=== PATIENT | male | born 1935 | race Caucasian/White ===

== ENCOUNTER → 2016-09-20 | Outpatient (CLI) | payer MEDICARE, MEDICAID ==
[~2016-09-20] MED LIST: AMLODIPINE10 MG PO; APAP W/ CODEINE1 TAB PO; ASPIR 8181 MG PO; BENADRYL25 M1 PO; CARVEDILOL 1212.5 MG PO; CHEWABLE ASPIRI81 M1 PO; COMBIVENT INH14.7 GM IN; CYCLOBENZAPRINE5 M1 PO; DOCUSATE SODIU100 MG PO; DRISDOL50000 IU PO; FAMOTIDINE 20MG20 MG PO; FERROUS SULFAT325 M1 PO; GLIPIZIDE ER5 MG PO; GLIPIZIDE5 MG PO; IMDUR 30MG. TAB30 MG PO; LEVAQUIN500 MG PO; LIPITOR10 MG PO; LISINOPRIL/HCTZ1 TA3 PO; LISINOPRIL10 MG PO; LOPERAMIDE2 MG PO; LORAZEPAM0.5 MG PO; LORTAB 500 MG-71 TAB PO; MELOXICAM15 MG PO; METOPROLOL25 MG PO; METOPROLOL50 MG PO; MILK OF MA400 MG/52 PO; NEURONTIN 300M300 MG PO; PLAVIX75 MG PO; PROTONIX 40MG T40 MG PO; Pepcid20 MG PO; REMERON15 MG PO; RISPERDAL 0.50.5 MG PO; RISPERDAL0.5 MG PO; RISPERDAL1 MG PO; RISPERIDONE1 M2 PO; SEROQUEL200 MG PO; TYLENOL W/CODEI1 TA2 PO; VANCOMYCIN 101000 MG IV; ZOFRAN4 MG PO
--- NOTE | 2016-09-20 09:05 | CARDIOVASCULAR REPORT ---
"Cerebrovascular Exam Indications: 433.10 Occlusion/stenosis of carotid artery without cerebral infarction. IMPRESSIONS 1. The bilateral vertebral arteries are patent with normal antegrade flow. 2. Study suggests 50-69% stenosis involving the right internal carotid artery and the left internal carotid artery. No change from the study of 16-Mar-2016. History: Coronary artery disease. Risk factors: Hypertension. Carotid duplex study. Complete study and Doppler flow study including spectral analysis, color and gee scale imaging. Location: Vascular laboratory. Patient status: Outpatient. Tables: Arterial flow: + +--------+--------+ |Location |V sys |V ed | + +--------+--------+ |Right CCA - proximal|85.6cm/s|15.7cm/s| + +--------+--------+ |Right CCA - distal |74.6cm/s|15.7cm/s| + +--------+--------+ |Right ECA |145cm/s |--------| + +--------+--------+ |Right ICA - proximal|215cm/s |45.2cm/s| + +--------+--------+ |Right ICA - mid |133cm/s |28.5cm/s| + +--------+--------+ |Right ICA - distal |144cm/s |29.5cm/s| + +--------+--------+ |Right vertebral |71.7cm/s|--------| + +--------+--------+ |Left CCA - proximal |107cm/s |17.7cm/s| + +--------+--------+ |Left CCA - distal |107cm/s |23.6cm/s| + +--------+--------+ |Left ECA |119cm/s |--------| + +--------+--------+ |Left ICA - proximal |211cm/s |51.1cm/s| + +--------+--------+ |Left ICA - mid |164cm/s |34.4cm/s| + +--------+--------+ |Left ICA - distal |167cm/s |46.2cm/s| + +--------+--------+ |Left vertebral |83.5cm/s|--------| + +--------+--------+ Velocity ratios: + + + + + + | |Right, V sys|Right, V ed|Left, V sys|Left, V ed| + + + + + + |Max ICA/dist CCA|2.88 |2.88 |1.97 |2.17 | + + + + + + (Report amended ) Electronically signed by: Quinn Leiva [id number]"
== END ==
LOC: RT 07:27
DX: I25.10 Atherosclerotic heart disease of native coronary artery without angina pectoris (principal); I65.23 Occlusion and stenosis of bilateral carotid arteries; R06.02 Shortness of breath

== ENCOUNTER 2017-01-04 01:26 | Emergency (ER) | payer MEDICARE, MEDICAID ==
[~2017-01-04] VITALS: Ht 157.5 cm; Wt 68.0 kg
[2017-01-04 02:39] LABS: LYMPH # 1.7 K/mm3 (0.7-4.5); LYMPH % 31.7 % (10-50)
--- NOTE | 2017-01-04 02:40 | Emergency Room Report ---
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 N Clinical Suspician of Infection? N Mental Status: 1 - Regular (Normal Baseline) Sepsis Risk:Low Sepsis Risk Have you (or family members/close friends) recently traveled outside the [place]? N If Yes, where/when: Have you had exposure to infectious disease within the past month? N TB? Other? Specify: Source patient, RN notes reviewed, EMS, long-term records, old records Exam Limitations no limitations Comment sent from [facility] for low sat - pt denied chest pain or sob Cardiac Chest Pain Chest pain indicative of cardiac No Timing/Duration this evening Severity moderate ALLERGIES Coded Allergies: metronidazole (From FLAGYL) (Intermediate, I-RASH 03/03/16) Home Medications Reported Medications APAP 300MG W/CODEINE 30MG (Acetaminophen-Cod #3 Tablet) 1 TAB PO QIDP Ferrous Sulfate (Ferrous Sulfate 325MG) 325 MG PO BID Gabapentin (Neurontin 300MG) 300 MG PO TID Atorvastatin Calcium (Lipitor 10MG) 10 MG PO QHS Quetiapine Fumarate (Seroquel) 200 MG PO QHS ERGOCALCIFEROL (VITAMIN D2) (Drisdol) 50,000 IU PO WEEKLY Albuterol-Ipratropium (Combivent Inhaler) 1 PUFFS IN QID Mirtazapine (Remeron) 30 MG PO QHS Amlodipine Besylate (Amlodipine) 10 MG PO DAILY Carvedilol (Carvedilol 12.5MG) 12.5 MG PO BID Docusate Sodium 250 MG PO DAILY Famotidine (Famotidine 20MG) 20 MG PO DAILY ISOSORBIDE MONONITRATE (IMDUR 30MG) 30 MG PO DAILY Lisinopril & Hctz (Lisinopril-Hctz 10-12.5 MG Tab) 1 TAB PO DAILY ONDANSETRON HCL (Zofran 4MG Tab) 4 MG PO TID Pantoprazole Sodium (Protonix 40MG TAB) 40 MG PO BID CLOPIDOGREL BISULFATE (PLAVIX) 75 MG PO DAILY Quetiapine Fumarate (Seroquel 50MG) 50 MG PO QHS ACETAMINOPHEN WITH CODEINE (Tylenol With Codeine #3 Tablet) 1 TAB PO TID History Medical History General CAD? No Angina: Yes CO: Yes Hypertension? Yes Hyperlipidemia? No CHF? No DVT? No PE? No COPD? Yes Asthma? No Anemia? No GERD? No Gastric ulcers? No GI Bleed? No Hernia? No Thyroid Problems? No Hypothyroidism? No CVA? No Seizures? No Diabetes? Yes Insulin Dependent: No Insulin Pump: No Home FSBS? No End Stage Renal Disease? No UTI? No Stones? No GB Disease: No Nephritic Syndrome? No Asplenia? No Hepatitis? No Sickle Cell Disease? No Arthritis? No Migraines? No Cataracts? Yes Glaucoma? Yes MRSA? No HIV? No TB? No Anxiety? No Depression? No Cancer? Yes Site: RIGHT LUNG More? No Immunization Hx DT/Tetanus UNKNOWN Flu 2014-16FSN Pneumonia Unknown Surgical Hx Previous Surgery?Y BYPASS PERFORATED ULCER Back Surgery FOOT RT LUNG REMOVED Family History Family Hx Diabetes Yes CAD Yes Hypertension Yes Hyperlipidemia Yes Cancer Yes TB No Social History Smoking Hx Smoker: Never Smoker Tobacco: No Packs/day N/A Alcohol Alcohol: No Drugs none Review of Systems All Other Systems Reviewed and Negative Constitutional denies fever Eyes denies drainage ENT denies: ear discharge, epistaxis, throat pain. Respiratory see HPI, denies cough, shortness of breath, denies wheezing Cardiovascular denies chest pain, denies palpitations, denies syncope Gastrointestinal denies abdominal pain, denies nausea, denies vomiting Genitourinary denies: dysuria, frequency, hesitancy, hematuria. Musculoskeletal denies back pain, denies joint pain, denies neck pain Skin denies rash Psychiatric/Neurological denies headache, denies seizure Physical Exam Vital Signs Vital Signs Date Time Temp Pulse Resp B/P Pulse O2 O2 Flow FiO2 Ox Delivery Rate 01/04 0625 71 20 120/47 98 3 01/04 0448 69 20 125/48 98 3 01/04 0345 71 20 119/51 98 3 01/04 0310 70 20 122/45 98 3 01/04 0128 98.0 67 15 117/48 99 3 - WBC >12,000 or <4,000 or 10% bands? 2 or more SIRS Criteria Met? B/P:120/47 MAP:71 Creatinine >2.0? UA output<0.5ml/kg/hr for 2 hrs? Platelet count >100,000? Lactate >2.0mmol/1? INR >1.2 or PTT > than 60 sec? Evidence of Organ Dysfunction? Provider documented clinical suspician of infection? N Sepsis Criteria Count: 0 Sepsis Risk: Low Sepsis Risk General Appearance no apparent distress Eye Exam - bilateral eye PERRL, bilateral eye EOMI Ear, Nose, Throat normal ENT inspection Neck limited range of motion Respiratory Status No: respiratory distress. Lung Sounds bilateral: decreased breath sounds. 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 No Results/Orders Laboratory Tests 01/04/17 0513: Troponin I 0.02 01/04/17 0215: Sodium 138, Potassium 3.5, Chloride 104, Carbon Dioxide 28, BUN 29 H, Creatinine 1.4 H, Estimated Creat Clear 38 L, Estimated GFR (MDRD) 48, Glucose 140 H, Calcium 8.7, Total Bilirubin 0.3, AST 13 L, ALT 15, Alkaline Phosphatase 86, Creatine Kinase 61, CK-MB (CK-2) Rel Index 0.8, CK and CKMB Interp < 0.5, Troponin I 0.02, B-Natriuretic Peptide 28, Total Protein 6.8, Albumin 2.9 L, Globulin 3.9 H, Albumin/Globulin Ratio 0.7 L, WBC 5.4, RBC 2.82 L, Hgb 9.5 L, Hct 30.9 L, MCV 109.7 H, RDW 14.5, Plt Count 255, MPV 7.7 , Gran % 45.8, Gran # 2.5, Lymphocytes % 31.7, Monocytes % 11.1 H, Eosinophils % 10.4, Basophils % 0.9, Lymphocytes # 1.7, Monocytes # 0.6, Eosinophils # 0.6 H, Basophils # 0.1, PUBS MCHC 30.8 L, MCH 33.8 H Current Medication Orders Sig/Jc Start time Last Medication Dose Route Stop Time Status Admin Sodium Chloride 10 ML PRN PRN 01/04 145 AC IV 01/05 138 Orders Procedure Date/time Status TROPONIN I 01/04 427 Complete ELECTROCARDIOGRAM REQUEST 01/04 139 Active IV SALINE LOCK 01/04 139 Active COMPLETE METABOLIC PANEL 01/04 139 Complete CBC WITH AUTO DIFF 01/04 139 Complete CARDIAC ENZYMES 01/04 139 Complete BRAIN NATRIURETIC PEPTIDE 01/04 139 Complete 12 LEAD EKG-CALEB (INITIAL) 01/04 UNK Active CM/EKG CM/field software engineer Rhythm Normal Sinus Rhythm EKG non-spec. ST/Twave chgs XRAY/CT/US XRAY/CT/US XRAY chest XR interpretation by reviewed by me Xray Results normal/NAD Departure Departure Time of Disposition 0632 Disposition DC Home or Self Care(routine) Clinical Impression Primary Impression: Renal insufficiency Secondary Impressions: Anemia Qualifiers: Anemia type: unspecified type Qualified Code: D64.9 - Anemia, unspecified Condition STABLE Patient Instructions CHF-H Additional Instructions resume meds Discharge Counseling Counseled pt/family regarding diagnosis, test results, follow up needs ED Critical Care Critical Care No at 0634
[2017-01-04 02:44] LABS: HEMOGLOBIN 9.5 g/dL (14.1-18.0)
[2017-01-04 03:11] LABS: BUN 29 mg/dL (7-18)
[2017-01-04 03:19] LABS: GFR (ESTIMATED) 48 ML/MIN (>60)
--- NOTE | 2017-01-04 05:50 | RADIOLOGY REPORT PS360 ---
CHEST-PORTABLE HISTORY: Shortness of breath sob ORDERING PHYSICIAN: Greg Stanley MD PATIENT AGE: 81 years COMPARISON: 03/22/2016 FINDINGS: Prior median sternotomy. Normal heart size. Postsurgical changes right lung base. Chronic interstitial/fibrotic changes are noted. No lobar consolidation or collapse with no significant change and no acute finding. Degenerative changes are present in the shoulders and AC joints. IMPRESSION: Chronic changes, no acute finding
[2017-01-04 07:03] VITALS: BP 120/47
== END 2017-01-04 07:14 | disposition home or self-care (01) ==
LOC: ER 01:26
PROVIDERS: Emergency Medicine
DX: N28.9 Disorder of kidney and ureter, unspecified (principal); D64.9 Anemia, unspecified; I25.2 Old myocardial infarction; I10 Essential (primary) hypertension; Z79.02 Long term (current) use of antithrombotics/antiplatelets; Z79.891 Long term (current) use of opiate analgesic; Z79.899 Other long term (current) drug therapy

== ENCOUNTER → 2017-01-10 | Outpatient (CLI) | payer MEDICARE, MEDICAID ==
[2017-01-11 09:00] LABS: STOOL OCCULT BLOOD NEGATIVE (NEG)
== END ==
LOC: LAB 08:54
PROVIDERS: Internal Medicine
DX: Z12.11 Encounter for screening for malignant neoplasm of colon (principal)

== ENCOUNTER → 2017-01-16 | Outpatient (CLI) | payer MEDICARE, MEDICAID ==
[2017-01-16 17:13] LABS: STOOL OCCULT BLOOD TRACE (NEG)
== END ==
LOC: LAB 17:02
PROVIDERS: Internal Medicine
DX: Z79.2 Long term (current) use of antibiotics (principal); Z12.11 Encounter for screening for malignant neoplasm of colon

== ENCOUNTER → 2017-01-18 | Outpatient (CLI) | payer MEDICARE, MEDICAID ==
[2017-01-18 13:00] LABS: STOOL OCCULT BLOOD POSITIVE (NEG)
== END ==
LOC: LAB 12:34
PROVIDERS: Internal Medicine
DX: Z12.11 Encounter for screening for malignant neoplasm of colon (principal)

== ENCOUNTER → 2017-02-04 | Outpatient (CLI) | payer MEDICARE, MEDICAID ==
[~2017-02-04] MED LIST changes: +PLAVIX 75MG TAB75 MG PO; +SEROQUEL50 MG PO; +TYLENOL WITH CO1 TA1 PO
[2017-02-04 01:51] LABS: STOOL OCCULT BLOOD NEGATIVE (NEG)
== END ==
LOC: LAB 01:35
PROVIDERS: Internal Medicine
DX: Z12.11 Encounter for screening for malignant neoplasm of colon (principal)
CPT/HCPCS: G0328